=== PATIENT | female | born 1995 | race Caucasian/White ===

== ENCOUNTER → 2018-06-26 | Outpatient (CLI) | payer OTHER ==
--- NOTE | 2018-06-26 10:45 | KCIC ---
Abdominal radiograph 06/26/2018 INDICATION: Lower abdominal pain and bloating for several months. Occasional nausea and constipation. COMPARISON: None available TECHNIQUE: 2 supine views of the abdomen are provided. FINDINGS: Supine technique limits evaluation for free intraperitoneal air. There are no dilated loops of small or large bowel. There is no pneumatosis coli. No portal venous gas. There is no organomegaly. Moderate amount stool is noted within the right colon. No suspicious calcifications are identified. No suspicious osseous amount. IMPRESSION: Nonobstructive bowel gas pattern. Electronically signed by: Jaqueline Ovalles MD (06/26/2018 10:41 AM) [id number]
== END | disposition home or self-care (01) ==
LOC: KCIC 10:09
PROVIDERS: ATTEND Nurse Practitioner Family
DX: R10.30 Lower abdominal pain, unspecified (principal); R14.0 Abdominal distension (gaseous)
CPT/HCPCS: 74018